=== PATIENT | male | born 1955 | race Caucasian/White ===

== ENCOUNTER 2020-10-26 15:20 | Emergency (ER) | payer MEDICARE, OTHER ==
[~2020-10-26] VITALS: Ht 185.4 cm; Wt 120.4 kg
[2020-10-26] MEDS ORDERED: ONDANSETRON HCL 4 MG ORAL DISINTEGRATING TAB PO NR (15:45)
[2020-10-26] MEDS ORDERED: HYDROCODONE/APAP 5MG-325MG TAB PO NR (15:45)
[2020-10-26] MEDS ORDERED: ONDANSETRON HCL 4 MG ORAL DISINTEGRATING TAB ONE (15:47)
[2020-10-26] MEDS ORDERED: HYDROCODONE/APAP 5MG-325MG TAB ONE (15:47)
[2020-10-26] MEDS ORDERED: AMLODIPINE BESYL5 MG PO (15:51)
[2020-10-26] MEDS ORDERED: ELIQUIS5 MG PO (15:51)
[2020-10-26] MEDS ORDERED: CYMBALTA30 MG (15:51)
[2020-10-26] MEDS ORDERED: DOXAZOSIN MESYLA2 MG PO (15:51)
[2020-10-26] MEDS ORDERED: SIMVASTATIN40 MG PO (15:51)
[2020-10-26] MEDS ORDERED: OMEPRAZOLE40 MG PO (15:51)
[2020-10-26] MEDS ORDERED: MORPHINE SULFATE INJ 4 MG/ML INJ 1ML ONE ×2 (15:52→19:10)
[2020-10-26] MEDS ORDERED: MORPHINE SULFATE INJ 4 MG/ML INJ 1ML IM ONE ×2 (16:00→19:00)
[2020-10-26] MEDS ORDERED: ULTRAM 50MG50 MG PO (16:22)
[2020-10-26] MEDS ORDERED: ACETAMINOPHEN500 MG PO (16:22)
== END 2020-10-26 19:30 | disposition home or self-care (01) ==
LOC: FSED 15:42
DX: R07.89 Other chest pain (principal); S22.41XA Multiple fractures of ribs, right side, initial encounter for closed fracture; S30.811A Abrasion of abdominal wall, initial encounter; W11.XXXA Fall on and from ladder, initial encounter; I10 Essential (primary) hypertension; D68.51 Activated protein C resistance; Z79.01 Long term (current) use of anticoagulants
CPT/HCPCS: 71250; 74176; 96372; 99283; J2270; Q0162